=== PATIENT | female | born 1955 ===

== ENCOUNTER 2019-11-20 06:46 | Day surgery (SDC) | payer OTHER ==
[~2019-11-20 06:46] MED LIST: CALTRATE 600 W-1 TAB PO; EVISTA60 MG PO; SEROQUEL300 MG PO
== END 2019-11-20 16:35 | disposition home or self-care (01) ==
LOC: AMB-ENDOS 06:46
PROVIDERS: ATTEND Colon & Rectal Surgery
DX: K62.1 Rectal polyp (principal); K63.5 Polyp of colon; Z12.11 Encounter for screening for malignant neoplasm of colon; Z20.828 Contact with and (suspected) exposure to other viral communicable diseases; K64.8 Other hemorrhoids

== ENCOUNTER 2021-12-28 10:32 | Outpatient (CLI) | payer OTHER | END 2021-12-28 10:37 | disposition home or self-care (01) | LOC: LAB 10:32 | PROVIDERS: ATTEND Orthopaedic Surgery | DX: E55.9 Vitamin D deficiency, unspecified (principal); M85.9 Disorder of bone density and structure, unspecified; E56.1 Deficiency of vitamin K; E21.3 Hyperparathyroidism, unspecified; E88.9 Metabolic disorder, unspecified; M81.8 Other osteoporosis without current pathological fracture ==

== ENCOUNTER → 2021-12-28 | Outpatient (CLI) | payer OTHER | END | disposition home or self-care (01) | LOC: RAD 11:43 | PROVIDERS: ATTEND Orthopaedic Surgery | DX: M79.645 Pain in left finger(s) (principal) ==